=== PATIENT | female | born 1975 | race African-American/Black ===

== ENCOUNTER → 2023-04-29 | Outpatient (REF) | LOC: M LAB 15:15 | PROVIDERS: ATTEND Nurse Practitioner Adult Health | DX: Z53.9 Procedure and treatment not carried out, unspecified reason (principal) ==

== ENCOUNTER 2023-05-11 14:47 | Emergency (ER) | payer SELFPAY ==
[~2023-05-11] VITALS: Ht 167.6 cm; Wt 72.2 kg
[2023-05-11] MEDS ORDERED: HYDR-3490 (15:08)
[2023-05-11 16:27] LABS: BASO % 0.2 % (0.0-1.0); EOS % 0.5 % (0.0-3.0); HEMATOCRIT 39.2 % (36.0-47.0); HEMOGLOBIN 12.6 g/dl (12.0-15.5); LYMPH # 1.6 10^3/uL (1.5-5.0); LYMPH % 36.3 % (24.0-44.0); MEAN CORPUSCULAR HEMOGLOBIN 24.8 pg (27.0-33.0); MEAN CORPUSCULAR HGB CONC 32.1 g/dl (32.0-36.5); MONO # 0.4 10^3/uL (0.0-0.8); NEUTROPHILS # 2.3 10^3/uL (1.5-8.5); NEUTROPHILS % 53.8 % (36.0-66.0); PLATELET COUNT, AUTOMATED 184 10^3/uL (150-450); RED BLOOD COUNT 5.09 10^6/uL (4.00-5.40); WHITE BLOOD COUNT 4.4 10^3/uL (4.0-10.0)
[2023-05-11 16:27] LABS: APPEARANCE, URINE CLEAR (CLEAR); BACTERIA, URINE AUTO NEGATIVE (NEGATIVE); BILIRUBIN, URINE AUTO NEGATIVE (NEGATIVE); BLOOD, URINE BLOOD 3+ (NEGATIVE); COLOR, URINE YELLOW (YELLOW); GLUCOSE, URINE (UA) AUTO NEGATIVE (NEGATIVE); KETONE, URINE AUTO NEGATIVE (NEGATIVE); LEUKOCYTE ESTERASE, URINE AUTO NEGATIVE (NEGATIVE); NITRITE, URINE AUTO NEGATIVE (NEGATIVE); PROTEIN, URINE AUTO NEGATIVE (NEGATIVE); RBC, URINE AUTO 0 /HPF (0-3); SQUAMOUS EPITHELIAL CELL UR AU 0 /HPF (0-6); UROBILINOGEN, URINE AUTO 0.2 mg/dL (0.0-2.0); WBC, URINE AUTO 0 /HPF (0-3)
[2023-05-11 16:56] LABS: ALBUMIN 4.3 G/DL (3.2-5.2); ALKALINE PHOSPHATASE 46 U/L (46-116); ALT/SGPT 17 U/L (7.0-40); AST/SGOT 16 U/L (<34); BILIRUBIN,DIRECT 0.1 MG/DL (<0.4); BILIRUBIN,TOTAL 0.3 MG/DL (0.3-1.2); BLOOD UREA NITROGEN 16 MG/DL (9-23); CALCIUM LEVEL 9.1 MG/DL (8.5-10.1); CARBON DIOXIDE LEVEL 27 MMOL/L (20-31); CHLORIDE LEVEL 101 MMOL/L (98-107); CREATININE FOR GFR 0.94 MG/DL (0.55-1.30); GLOMERULAR FILTRATION RATE > 60.0 (>58); GLUCOSE, FASTING 110 MG/DL (60-100); POTASSIUM SERUM 3.9 MMOL/L (3.5-5.1); SODIUM LEVEL 135 MMOL/L (136-145); TOTAL PROTEIN 8.4 G/DL (5.7-8.2)
[2023-05-11 17:15] VITALS: O2SAT 98
[2023-05-11 18:00] VITALS: BP 156/94
[2023-05-11] MEDS ORDERED: CHLO125TA PO (18:10)
[2023-05-11 18:22] VITALS: TEMP 98
== END 2023-05-11 18:22 | disposition home or self-care (01) ==
LOC: M ED 14:47
DX: I10 Essential (primary) hypertension (principal); R00.0 Tachycardia, unspecified; Z88.0 Allergy status to penicillin; Z79.899 Other long term (current) drug therapy

== ENCOUNTER 2023-05-28 12:52 | Emergency (ER) | payer SELFPAY ==
[~2023-05-28 12:52] MED LIST: CHLO125TA PO; HYDR-3490
[2023-05-28 15:24] LABS: HEMATOCRIT 38.3 % (36.0-47.0); HEMOGLOBIN 12.7 g/dl (12.0-15.5); MEAN CORPUSCULAR HEMOGLOBIN 24.9 pg (27.0-33.0); MEAN CORPUSCULAR HGB CONC 33.2 g/dl (32.0-36.5); MEAN CORPUSCULAR VOLUME 75.1 fl (80.0-96.0); PLATELET COUNT, AUTOMATED 120 10^3/uL (150-450); WHITE BLOOD COUNT 4.2 10^3/uL (4.0-10.0)
[2023-05-28 15:44] LABS: CK-MB VALUE MASS < 1.0 NG/ML (<3.6)
[2023-05-28 15:46] LABS: BLOOD UREA NITROGEN 14 MG/DL (9-23); CALCIUM LEVEL 9.2 MG/DL (8.5-10.1); CARBON DIOXIDE LEVEL 30 MMOL/L (20-31); CHLORIDE LEVEL 100 MMOL/L (98-107); CPK CREATINE PHOSPHOKINASE 131 U/L (34-145); CREATININE FOR GFR 0.92 MG/DL (0.55-1.30); GLOMERULAR FILTRATION RATE > 60.0 (>58); GLUCOSE, FASTING 101 MG/DL (60-100); MB/CK RELATIVE INDEX 0.76 (< OR =4); SODIUM LEVEL 135 MMOL/L (136-145)
[2023-05-28 15:49] LABS: FREE T4 1.22 NG/DL (0.89-1.76); THYROID STIMULATING HORMONE 1.504 uIU/ML (0.55-4.78)
[2023-05-28 16:42] VITALS: BP 145/85
[2023-05-28] MEDS: amLODIPine 5 MG TAB PO ONE (16:42)
[2023-05-28 17:38] VITALS: BP 140/92; TEMP 98.9; O2SAT 100
[2023-05-28] MEDS ORDERED: AMLO1TAB24 PO (17:42)
== END 2023-05-28 17:49 | disposition home or self-care (01) ==
LOC: M ED 12:52
DX: I10 Essential (primary) hypertension (principal); R00.0 Tachycardia, unspecified; Z88.0 Allergy status to penicillin; Z79.83 Long term (current) use of bisphosphonates; Z79.899 Other long term (current) drug therapy

== ENCOUNTER → 2025-03-06 | Outpatient (CLI) | payer BC ==
[~2025-03-06] MED LIST changes: +AMLO1TAB24 PO
[2025-03-06 12:56] LABS: BASO # 0.0 10^3/uL (0.0-0.2); BASO % 0.8 % (0.0-1.0); EOS # 0.1 10^3/uL (0.0-0.5); EOS % 1.7 % (0.0-3.0); LYMPH # 2.6 10^3/uL (1.5-5.0); LYMPH % 48.7 % (24.0-44.0); MONO # 0.7 10^3/uL (0.0-0.8); MONO % 13.9 % (2.0-8.0); NEUTROPHILS # 1.8 10^3/uL (1.5-8.5); NEUTROPHILS % 34.7 % (36.0-66.0); PLATELET COUNT, AUTOMATED 142 10^3/uL (150-450)
[2025-03-06 13:27] LABS: FREE T4 1.23 NG/DL (0.89-1.76)
[2025-03-06 13:53] LABS: ALT/SGPT 16.0 U/L (7.0-40); AST/SGOT 20.0 U/L (<34); CALCIUM LEVEL 9.0 MG/DL (8.5-10.1); CARBON DIOXIDE LEVEL 28.0 MMOL/L (20-31); CHLORIDE LEVEL 105.0 MMOL/L (98-107); CHOLESTEROL LEVEL 187.0 MG/DL (<200); CHOLESTEROL RISK RATIO 3.5 (<5); CREATININE FOR GFR 0.83 MG/DL (0.55-1.30); GLOMERULAR FILTRATION RATE 85.8 (>51); IRON (FE) 98.0 UG/DL (50-170); LDL CHOLESTEROL 119.5 MG/DL (<100); NON-HDL-C 133.7 MG/DL; PERCENT SATURATION 34.9 % (13.2-45.0); POTASSIUM SERUM 4.1 MMOL/L (3.5-5.1); SODIUM LEVEL 139.0 MMOL/L (136-145); TOTAL 25(OH) VITAMIN D 41.4 NG/ML (20.0-100.0); TRIGLYCERIDES LEVEL 71.0 MG/DL (<150)
[2025-03-06 14:07] LABS: ESTIMATED AVERAGE GLUCOSE 120.0 MG/DL (60-110)
== END ==
LOC: M WUC 08:11
DX: Z00.8 Encounter for other general examination (principal); I10 Essential (primary) hypertension; R00.0 Tachycardia, unspecified; E55.9 Vitamin D deficiency, unspecified; R73.03 Prediabetes